=== PATIENT | female | born 1975 | race Two or more races ===

== ENCOUNTER 2016-06-10 12:35 | Emergency (ER) | payer SELFPAY ==
[~2016-06-10] VITALS: Ht 154.9 cm; Wt 72.6 kg
[2016-06-10 14:13] VITALS: BP 149/89
--- NOTE | 2016-06-10 14:58 | RAD ---
Two view chest History:Cough, fever, chills for 3 days . PA and lateral views of the chest are submitted. Comparison: 08/17/2006 Findings: There is no pneumothorax or pleural fluid. No new lobar consolidation is identified. There is been cholecystectomy. The pericardial cardiac silhouette is within normal limits in size. The trachea is in the midline. No acute osseous abnormality is identified. Impression: No lobar infiltrate is identified.
--- NOTE | 2016-06-10 15:25 | PHYS DOC ---
Past Medical History Past Medical History: No Pertinent History Past Surgical History: No Surgical History Alcohol Use: None Drug Use: None Adult General Chief Complaint Chief Complaint: COUGH HPI HPI Patient is a 41 year old female who presents with dry cough, anterior chest pain with cough, chills, rhinorrhea, myalgia, and fatigue over the past 3 days. She denies difficulty breathing, measured fever, hemoptysis, leg pain or swelling, exertional symptoms, orthopnea, abdominal pain, nausea or vomiting, diarrhea. Review of Systems Review of Systems Constitutional: Denies measured fever [] Eyes: Denies change in visual acuity, redness, or eye pain [] HENT: Denies nasal congestion or sore throat [] Respiratory: Denies shortness of breath [] Cardiovascular: No additional information not addressed in HPI [] GI: Denies abdominal pain, nausea, vomiting, bloody stools or diarrhea [] : Denies dysuria or hematuria [] Musculoskeletal: Denies back pain or joint pain [] Integument: Denies rash or skin lesions [] Neurologic: Denies headache, focal weakness or sensory changes [] Endocrine: Denies polyuria or polydipsia [] Allergies Allergies Allergies Coded Allergies Type Severity Reaction Last Updated Verified No Known Drug Allergies 06/10/16 No Physical Exam Physical Exam Constitutional: Well developed, well nourished, no acute distress, non-toxic appearance. [] HENT: Normocephalic, atraumatic, bilateral external ears normal, oropharynx moist, no oral exudates, nose normal. [] Eyes: PERRLA, EOMI, conjunctiva normal, no discharge. [] Neck: Normal range of motion, supple, no stridor. [] Cardiovascular:Heart rate regular rhythm [] Lungs & Thorax: Bilateral breath sounds clear to auscultation [] Abdomen: Bowel sounds normal, soft, no tenderness. [] Skin: Warm, dry, no erythema, no rash. [] Back: Normal range of motion. [] Extremities: ROM intact, no edema. [] Neurologic: Alert and oriented X 3, normal motor function, normal sensory function, no focal deficits noted. [] Psychologic: Affect normal, judgement normal, mood normal. [] Current Patient Data Vital Signs Vital Signs Date Time Temp Pulse Resp B/P Pulse Ox O2 Delivery O2 Flow Rate FiO2 2/12/17 14:13 98.1 82 20 149/89 98 Room Air 98.1 Radiology/Procedures Radiology/Procedures Chest xray as interpreted by me with no acute cardiopulmonary disease process Course & Med Decision Making Course & Med Decision Making Pertinent Labs and Imaging studies reviewed. (See chart for details) She appears well on exam. X-ray negative as above. Discussed symptomatic care for likely viral upper respiratory infection. Return precautions given. She understands and agrees with plan. Dragon Disclaimer Dragon Disclaimer This electronic medical record was generated, in whole or in part, using a voice recognition dictation system. Departure Departure Impression: Primary Impression: Upper respiratory infection Disposition: HOME, SELF-CARE Condition: STABLE Referrals: NO PCP (PCP) Patient Instructions: Upper Respiratory Infection, Adult, [id number] Additional Instructions: Take Tylenol or ibuprofen as needed for pain. Drink liquids to stay hydrated. Use nasal saline rinse (such as Gabriela pot) to help with nasal congestion. Follow -up with your primary care doctor within one week. Return for any concerns. Problem Qualifiers Primary Impression: Upper respiratory infection URI type: unspecified viral URI Qualified Code: J06.9 - Acute upper respiratory infection, unspecified Almas NEELY MD Jun 10, 2016 15:25
== END 2016-06-10 15:33 | disposition home or self-care (01) ==
LOC: ER 12:35
DX: J06.9 Acute upper respiratory infection, unspecified (principal); M79.1 Myalgia; R07.9 Chest pain, unspecified
CPT/HCPCS: 71020; 99284-25